=== PATIENT | female | born 1940 | race Caucasian/White ===

== ENCOUNTER 2025-04-21 13:23 | Observation (INO) ==
--- NOTE | 2025-04-21 14:14 | Emergency Department Note ---
Impression & Plan Lumbar disc herniation with myelopathy, Cervical spondylosis with myelopathy, Ambulatory dysfunction ED Provider Note CHIEF COMPLAINT: Low back pain HISTORY OF PRESENTING ILLNESS: This 85-year-old female patient presents to the emergency department with her daughter and granddaughter for a second opinion of her lower back pain and trouble walking. The patient states that she has a history of bulging disks in her lower back as well as gflk-kk-buul arthritis in her knees. The patient states that she is unable to ambulate at home because of the pain. The patient states that she was just discharged from [facility] and came here for a second opinion of her spinal issues. She is on 81 mg ASA, but not on any blood thinners at home. She was on heparin for 2 days during admission. The patient has had chronic low back pain progressively getting worse for the past year. She is no longer able to sleep flat on her back because of the pain. The patient states that she has had loss of control of her bladder control for the past 3 years. However, she has had loss of control of her bowel functions intermittently since Mother's Day. The patient then had such bad pain on 04/18/25 that she could not stand up on her own. The patient went to the [facility] ER at that time. The patient states that she had an MRI at [facility] and was told that she had a bulging disc that was protruding straight and compressing a nerve per patient. She states that she saw a neurosurgeon during admission and they wanted to do surgery per patient. The patient states that she did not want to have the surgery performed at [facility] because she was concerned about her chronic health problems and did not want to have the surgery performed in [place]. The patient states that they could not do the surgery until next week in [place] either. The patient was concerned about this so the patient states that she called Dr. Montilla's office to get in with him and the patient states that her granddaughter spoke with Dr. Montilla's physician assistant art director who told her to come to the ER emergently. The patient states that she was discharged from [facility] this morning and came straight to the [facility] ER. I was able to speak with Dr. Montilla's physician assistant art director who states that she did not know anything about the patient and that she was not contacted about the patient and did not give any recommendations on the patient. Dr. Montilla is not on-call for spinal surgery today. The patient has never been seen by Dr. Montilla's office. After discussing this with the patient and her family, the granddaughter stated that she did not actually speak with Dr. Montilla's physician assistant art director, but rather with someone that she knew in Dr. Montilla's office who told her to come to the ER because of the patient's symptoms. [facility] did not send us the inpatient records until many hours later when the patient was being admitted, but the patient had copies of the imaging studies on disc that we were able to upload to our system and I was able to review the reports. MRI of the cervical spine with and without contrast on 04/18/2025: Cervical spondylosis. Multilevel disc herniations. Grade 1 anterior listhesis of C3 over C4 vertebra with grade 2 spinal stenosis and chronic compressive myelomalacia changes in adjacent cervical cord. Grade 1 anterolisthesis of C6 over C7 vertebra with grade 2 spinal stenosis. No mass effect on the cord. Moderate bilateral neuroforaminal narrowing seen. No interval changes. MRI of the lumbar spine with and without contrast on 04/18/2025: Dextroscoliosis of the lumbar spine with associated spondylosis. Multilevel level disc herniations. Grade 1 anterolisthesis of L4 over L5 with posterior diffuse disc bulge causing grade 3 central canal stenosis, compression over traversing as well as bilateral exiting nerve roots, and bilateral severe neuroforaminal narrowing at L4/L5 level. No significant interval changes. It looks like the MRI comparison was from September 2023. Chest x-ray from 04/19/2025 showed no evidence for acute cardiopulmonary disease. X-ray of the lumbosacral spine on 04/20/2025 shows mild left convex lumbar scoliosis with 5 nonrib-bearing lumbar segments. Cholecystectomy clips in the right upper quadrant. No acute fracture of the pars into reticularis. Straightening of the normal lumbar lordosis and multilevel moderate to severe to space narrowing. No acute wedge compression deformity or listhesis. No definitive listhesis and neutral flexion and extension. Examination is suboptimal due to positioning of the patient habitus and underpenetration. Severe facet arthropathy and L3/4, L4/5 anterior listhesis, and L5/S1. Diffuse retained stool. REVIEW OF SYSTEMS: See HPI for pertinent positives and pertinent negatives. ALLERGIES: Morphine MEDICATIONS: See below PAST MEDICAL HISTORY: See below PHYSICAL EXAM: VITALS: Vitals are noted on the nurse's note and reviewed by myself. GENERAL: Appears in mild discomfort, but non toxic in appearance and in no acute distress. Non-diaphoretic. SKIN: Capillary refill less than 2 seconds. HEAD: Normocephalic atraumatic. EYES: Pupils equal round and reactive to light and accommodation. The Extraocular movements intact. NECK: Supple without nuchal rigidity. No cervical spine tenderness. No paraspinous muscle tenderness. No lymphadenopathy. HEART: Regular rate and rhythm without murmurs gallops or rubs. LUNGS: Clear to auscultation bilaterally without wheezes, rales or rhonchi. ABDOMEN: Positive bowel sounds x 4. Normal tympanic percussion. Soft, nontender, without masses or organomegaly. Arnold sign negative. MUSCULOSKELETAL: There is mild tenderness over the lower lumbar spinous processes. There is mild tenderness over the paraspinous muscles of the lumbar spine right greater than left. There is no tenderness over the thoracic spine or paraspinous muscles. There are no muscle spasms present. The patient is slow to move around with maximum tenderness with flexion of the spine. The patient is able to move her bilateral lower extremities, but with increased pain in her back. Strength is 3/5 on the right and 4/5 on the left lower extremities. The patient states that she has decreased sensation to light and sharp touch of the right lower extremity compared to the left, but is still able to feel sensation. Deep tendon reflexes 1+ in the lower extremities. Full range of motion of the bilateral upper extremities with normal strength for age bilaterally. Normal sensation to light and sharp touch of the bilateral upper extremities. Peripheral pulses 2+ and equal in the bilateral upper and lower extremities. NEURO: Patient was alert and oriented to person place and time. Normal sensation to light and sharp touch of the bilateral lower extremities. No focal neurological deficits. DIFFERENTIAL DIAGNOSIS: Differential diagnosis includes strain/sprain, muscle spasm, disc herniation, fracture, subluxation, metastatic disease, cord compression, discitis, sciatica, cauda equina, conus medullaris syndrome, infection, epidural abscess, epidural hematoma, aortic disease, renal colic, UTI, pyelonephritis, gastrointestinal, as well as other pathologies. ED COURSE AND MEDICAL DECISION MAKING: HISTORY FROM INDEPENDENT HISTORIAN: Additional history was obtained from the patient's daughter and granddaughter. MEDICATIONS GIVEN: Tylenol 1000 mg IV. INTERPRETATION OF LABS: I interpreted the labs with full lab results as below in the lab section of this note. Laboratory results pertinent to the emergent complaint are discussed in the MDM section below. The patient was advised to follow up with their PCP and/or specialist(s) for further outpatient monitoring and management of any abnormal results. EXTERNAL RECORDS REVIEWED: I reviewed the patient's imaging studies that we were able to upload to our system as summarized above. I did finally get some records from [facility] at the time of the patient's admission. CHRONIC MEDICAL/SOCIAL CONDITIONS AFFECTING CARE: The patient has multiple comorbid and chronic health problems including a history of throat cancer requiring radiation and surgical intervention, carotid artery stenosis, and chronic kidney disease. CONSULTATIONS: Physician assistant art director for Dr. Montilla of spinal surgery. Dr. Tran of spinal surgery. Dr. Zamarripa of spinal surgery at [facility]. Dr. Rolon of the medicine service at [facility]. On-call anesthesiologist. Dr. Hollingsworth. On-call hospitalist. MDM SUMMARY: I examined the patient. The patient states that she was admitted to [facility] and was set to undergo spinal surgery next week due to her abnormal MRI findings of her lumbar spine as well as her cervical spine. There was concern for cauda equina syndrome per patient. However, the patient states that she has had chronic low back pain that has gotten progressively worse over the past couple of months. She started noticing saddle anesthesia and intermittent fecal incontinence about 1 month ago. She has had urinary incontinence for the past 1 to 2 years or more. The patient had trouble walking and standing up on 04/18/2025 which prompted her to be seen at the [facility] ER. I was able to review the patient's imaging from the disc that was uploaded to our system with the findings as above. However, we did not receive the records from [facility] until almost 7 hours after the patient had presented to the ER and at the time of her admission locally. These records were also only partial records without complete information. The patient stated that she did not want to have surgery performed by the surgeon at [facility] and requested to be discharged from that hospital. Initially, the patient's daughter and granddaughter stated that they spoke with Dr. Montilla's physician assistant art director who told the patient that Dr. Montilla could perform the surgery and the patient should come to the ER emergently for a second opinion per the patient's family. Dr. Montilla was not on-call, but since the patient's family stated they talk to Dr. Montilla's physician assistant art director directly, I contacted Dr. Montilla's office since it was still during office hours. I spoke with Dr. Montilla's physician assistant art director who did not know anything about the patient and stated that she did not send the patient to the ER. She stated that Dr. Montilla was not on-call and that Dr. Tran was on-call and would need to be consulted. After discussing this with the family, the patient's granddaughter stated that she did not actually speak with Dr. Montilla's physician assistant art director, but rather someone else in the office that she knew who told her to come to the ER just based on the patient's symptoms. I then reached out to Dr. Tran of spinal surgery. He stated that he could perform surgical intervention on the patient, but due to the length of the symptoms it was unclear how much improvement of her current deficits would be able to be achieved. He also stated that due to the patient's complicated medical history and previous throat cancer/radiation/surgery and her carotid artery stenosis he was not sure that anesthesia would feel comfortable having the patient undergo surgery at our facility. I reached out to the on-call anesthesiologist, but as I was talking to the on-call anesthesiologist, Dr. Tran messaged me that he had reach out to Dr. Hollingsworth who felt the patient was high risk and would need to be transferred to a tertiary care facility for surgical intervention. I reached out to [facility] and spoke with Dr. Zamarripa of spinal surgery. He stated that he would accept the patient for surgical intervention, but it would not be emergent surgical intervention and he was unsure exactly when he would be able to perform the surgery. He stated that the procedure could even be done as an outpatient if needed. However, the patient and her family do not feel that she can be discharged at this time because she is unable to care for herself, stand up or ambulate without severe difficulty, or perform her daily ADLs. Therefore, she would need to be admitted medically or transferred to a rehab facility until she could undergo surgery. I spoke with Dr. Rolon of the medicine service at [facility] who did not accept the patient in transfer because the patient did not need to have the emergent surgery and medical admission/rehab placement could be performed locally. I had a meaningful discussion about this patient with Raciel who agrees with my assessment and the treatment plan. Dr. Schrader, Dr. Tran, Dr. Hollingsworth, and I had a discussion about the appropriate disposition of this patient given her unique and difficult situation. Dr. Tran did reach out to Dr. Zamarripa himself, but the patient was still not a candidate for transfer. It was recommended the patient be admitted locally by medicine for stabilization and/or rehab placement until she could undergo definitive surgical intervention. Dr. Tran stated that he would be on consult for the patient, but if she would require any surgical intervention it would need to be performed at a tertiary care facility. I spoke with the on-call hospitalist who agreed to admit the patient for further medical management. Please refer to their dictations for further details. An IV lock was placed and labs were drawn for admission. The patient was given Tylenol and 1000 mg IV for pain. The patient's care was transferred to the on-call hospitalist in stable condition. DIAGNOSIS: Grade 1 anterolisthesis of L4 over L5 with posterior diffuse disc bulge causing grade 3 central canal stenosis and myelopathy of the lower extremities Cervical spondylosis with grade 1 anterolisthesis of C3 over C4 with grade 2 spinal stenosis and chronic compressive myomalacia changes in the adjacent cervical cord Ambulatory dysfunction Past Med/Surg History Problem List (Updated 04/21/25 @ 23:01 by Maddison Nguyen PA-C) Ambulatory dysfunction (Acute) Cervical spondylosis with myelopathy (Acute) Lumbar disc herniation with myelopathy (Acute) Mass of left side of neck Oropharyngeal mass Encounter for pre-operative examination Medical History (Updated 04/21/25 @ 23:01 by Maddison Nguyen PA-C) Nonobstructive atherosclerosis of coronary artery Per 2013 cath Osteoarthritis Fistula left arm - 4 fistula and do not work right arm - attempted and does not work follows with Dr. 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 - was found at ophthalmology visit will start to see Dr Walker in April 2019 Surgical History Hx of excision of mass lipoma (fatty tumor ) removed from back Hx of tubal ligation History of arthroscopy right knee arthroscopy x 3 History of carpal tunnel release right and left History of cholecystectomy History of esophagogastroduodenoscopy (EGD) History of colonoscopy S/P CATHY-BSO History of cataract surgery right and left History of cardiac cath 2013 heart cath--nonobstructive dz Social History Smoking Status: Former smoker Second Hand Exposure: No; Do You Dip or Chew Tobacco: No; Hx Alcohol Use: No Hx Substance Use: No Preferred Language: Romanian Communication Ability: Effective Animal Laboratory Technician Required: No Beliefs That Will Affect Care: None Current Living Situation: Alone Feels Safe at Home: Yes Assistive Devices: Cane, Denture - Upper and Walker Allergies Allergies Allergy/AdvReac Type Severity Reaction Status Date / Time morphine AdvReac Mild "jittery" Verified 02/26/19 12:24 Home Meds Home Medications Medication Instructions Recorded Confirmed amlodipine 5 mg tablet 10 mg PO QAM 02/24/19 04/21/25 flaxseed oil 1,000 mg capsule 1,000 mg PO QAM 02/24/19 04/21/25 gabapentin 100 mg capsule 200 mg PO HS 02/24/19 04/21/25 (Neurontin) multivitamin 1 cap PO QAM 02/24/19 04/21/25 omega 1-jba-yzb-fish oil 1,000 mg 1 cap PO QAM 02/24/19 04/21/25 (120 mg-180 mg) capsule (Fish Oil) ranibizumab 0.5 mg/0.05 mL 1 dose intravitreal UD 02/24/19 04/21/25 intravitreal solution for injection (Lucentis) cholecalciferol (vitamin D3) 1,250 50,000 unit PO WK 04/21/25 04/21/25 mcg (50,000 unit) capsule cholecalciferol (vitamin D3) 125 5,000 unit PO DAILY 04/21/25 04/21/25 mcg (5,000 unit) capsule cyanocobalamin (vitamin B-12) 1,000 mcg IM MONTHLY 04/21/25 04/21/25 1,000 mcg/mL injection solution evolocumab 140 mg/mL subcutaneous 140 mg subcut .[id number] 04/21/25 04/21/25 pen injector (Repatha SureClick) levothyroxine 100 mcg tablet 100 mcg PO DAILY 04/21/25 04/21/25 (Synthroid) pantoprazole 40 mg tablet,delayed 40 mg PO DAILY 04/21/25 04/21/25 release sodium bicarbonate 650 mg tablet 650 mg PO TID 04/21/25 04/21/25 Results & Data (ED) Vital Signs Vital Signs - 24 hr 04/21/25 13:28 04/21/25 19:00 04/21/25 21:00 Temperature 36.7 C Temperature Source Temporal Artery Scan Pulse Rate 74 Pulse Rate [Finger] 67 79 Respiratory Rate 18 16 18 Respiratory Effort / Characteristics Non-Labored Spontaneous Respiratory Depth Normal Blood Pressure 126/67 Blood Pressure [Right Arm] 131/75 138/79 Blood Pressure Mean 86 Blood Pressure Mean [Right Arm] 93 98 Pulse Oximetry 98 96 97 Oxygen Delivery Method Room Air Room Air Room Air Sepsis Recent Fever Within 48 Hours No Sepsis New/Unexplained Change in Mental Status No Sepsis Action Taken by Nursing No Action Required 04/21/25 22:27 Temperature Temperature Source Pulse Rate Pulse Rate [Finger] 64 Respiratory Rate 18 Respiratory Effort / Characteristics Respiratory Depth Blood Pressure Blood Pressure [Right Arm] 132/69 Blood Pressure Mean Blood Pressure Mean [Right Arm] 90 Pulse Oximetry 98 Oxygen Delivery Method Sepsis Recent Fever Within 48 Hours Sepsis New/Unexplained Change in Mental Status Sepsis Action Taken by Nursing Laboratory Data 04/21/25 16:56 06/19/25 16:56 Lab Results 04/21/25 04/21/25 Range/Units 15:45 16:56 WBC 7.87 (4.8-10.8) K/ul RBC 3.31 L (4.20-5.40) M/uL Hgb 9.9 L (12.0-16.0) g/dl Hct 31.0 L (37.0-47.0) % MCV 93.7 (80.0-100.0) fL MCH 29.9 (25.0-34.0) pg MCHC 31.9 L (32.0-36.0) g/dL RDW Std Deviation 44.9 (36.4-46.3) fL RDW Coeff of Umesh 13.0 (11.5-14.5) % Plt Count 223 (130-400) K/uL MPV 9.4 (9.4-12.4) fL Immature Gran % (Auto) 0.3 % Neut % (Auto) 66.9 % Lymph % (Auto) 20.1 % Cooper % (Auto) 11.7 % Eos % (Auto) 0.9 % Baso % (Auto) 0.1 % Neut # (Auto) 5.27 (1.40-6.50) K/uL Lymph # (Auto) 1.58 (1.20-3.40) K/uL Cooper # (Auto) 0.92 H (0.11-0.59) K/uL Eos # (Auto) 0.07 (0.00-0.50) K/uL Baso # (Auto) 0.01 (0.00-0.20) K/uL Immature Gran # (Auto) 0.02 (0.01-0.20) K/uL Sodium 135 L (136-145) mmol/L Potassium 4.5 (3.5-5.1) mmol/L Chloride 102 (98-107) mmol/L Carbon Dioxide 23 (21-32) mmol/L Anion Gap 10 (3-11) BUN 55 H (6-23) mg/dl Creatinine 3.90 H (0.6-1.2) mg/dl Est Cr Clr Drug Dosing Not Reportable eGFR 10.92 BUN/Creatinine Ratio 14.1 (10-20) Glucose 126 H (70-99(Fasting)) mg/dl Estimat Average Glucose 123 mg/dl Hemoglobin A1c 5.9 H (4.5-5.6) % Calcium 8.9 (8.6-10.3) mg/dl Total Bilirubin 0.4 (0.2-1.0) mg/dl AST 27 (13-39) U/L ALT 27 (7-52) U/L Alkaline Phosphatase 135 H (34-104) U/L Total Protein 6.5 (6.0-8.3) gm/dl Albumin 3.8 (3.4-5.0) gm/dl Globulin 2.7 (2.5-4.0) gm/dl Albumin/Globulin Ratio 1.4 (0.9-2) TSH 1.086 (0.300-4.500) uIu/ml Urine Color Yellow Urine Appearance Clear (Clear) Urine pH 7.0 (4.5-7.5) Ur Specific [place] 1.005 (1.000-1.030) Urine Protein Trace H (Negative) Urine Glucose (UA) Trace H (Negative) Urine Ketones Negative (Negative) Urine Blood Negative (Negative) Urine Nitrite Negative (Negative) Urine Bilirubin Negative (Negative) Urine Urobilinogen Negative (Negative) Ur Leukocyte Esterase Negative (Negative) Urine WBC (Auto) 0-5 (0-5) /hpf Urine RBC (Auto) 0-2 (0-2) /hpf U Hyaline Cast (Auto) 0-2 (0-2) /lpf U Epithel Cells (Auto) 0-2 (0-2) /hpf Urine Bacteria (Auto) None Seen (None Seen) Urine Comment Administered Medications Lidocaine (Lidocaine 5% 1 Patch) 1 patch TD HS PRICE Stop: 05/21/25 21:29 Last Admin: 04/21/25 21:52 Dose: 1 patch Documented By: NAW Discontinued Medications Acetaminophen (Ofirmev) 1,000 mg in 100 mls @ 400 mls/hr IV NOW STA Stop: 04/21/25 16:19 Last Infusion: 04/21/25 18:00 Dose: Infused Documented By: Admin: 04/21/25 17:13 Dose: 400 mls/hr Documented By: RUTHANN Oxycodone HCl (Oxycodone Hcl Ir 5 Mg Tab (Immediate Release)) 5 mg PO NOW STA Stop: 04/21/25 21:27 Last Admin: 04/21/25 21:51 Dose: 5 mg Documented By: JACK Discharge Plan Visit Data Chief Complaint: Back Injury/Pain Stated Complaint: WANT A 2ND OPINION ED Provider: Mis Schrader ED Midlevel Provider: Maddison Nguyen Discharge Problem: Lumbar disc herniation with myelopathy, Cervical spondylosis with myelopathy, Ambulatory dysfunction Patient Disposition: Admitted As Inpatient Condition: Fair Forms Stand Alone Forms: My [facility] Prescriptions Prescriptions: No Action amlodipine 5 mg Tablet 10 mg PO QAM flaxseed oil 1,000 mg Capsule 1,000 mg PO QAM Rx Instructions: 04/21-OTC unable to verify gabapentin [Neurontin] 100 mg Capsule 200 mg PO HS multivitamin Capsule 1 cap PO QAM Rx Instructions: 04/21-OTC unable to verify Lucentis 0.5 mg/0.05 mL Solution 1 dose INTRAVITREAL UD Rx Instructions: original: 1 dose intravitreal every 6 weeks 04/21-No fill history unable to verify omega 0-ich-ovn-fish oil [Fish Oil] 1,000 mg (120 mg-180 mg) Capsule 1 cap PO QAM Rx Instructions: 04/21-OTC unable to verify levothyroxine [Synthroid] 100 mcg tablet 100 mcg PO DAILY sodium bicarbonate 650 mg tablet 650 mg PO TID pantoprazole 40 mg tablet,delayed release (DR/EC) 40 mg PO DAILY cyanocobalamin (vitamin B-12) 1,000 mcg/mL solution 1,000 mcg IM MONTHLY cholecalciferol (vitamin D3) 125 mcg (5,000 unit) capsule 5,000 unit PO DAILY cholecalciferol (vitamin D3) 1,250 mcg (50,000 unit) capsule 50,000 unit PO WK Repatha SureClick 140 mg/mL pen injector 140 mg subcut .[id number] Referrals Referrals: Sebastián Granados, [Outside Practitioners] -
--- NOTE | 2025-04-21 14:14 | Emergency Department Note ---
ED Visit Note I was consulted by the Advanced Practice Provider, Maddison Nguyen PA-C. I performed a substantive portion of the visit. This includes aspects of: History: Patient is an 85-year-old female presenting with low back pain and neurological deficits. Patient reportedly presented to [facility] and was diagnosed with bulging disks and concern for cauda equina. They had a surgical plan in place but the family left AGAINST MEDICAL ADVICE and presented to [facility] for "a second opinion." Patient reportedly has been having loss of bowel and bladder control "for a while." She is unable to ambulate secondary to pain, numbness and tingling. No reported fevers. MDM: Spine surgery was consulted with plan for surgical intervention here at [facility]. However, on anesthesia consultation for the OR, they deemed her a high risk surgical candidate and did not feel she was an appropriate surgical candidate from [facility] and recommended transfer to a tertiary care facility. [facility] was consulted for transfer. .
[2025-04-21 16:40] LABS: Appearance Urine Clear (Clear); Bacteria Urine Automated None Seen (None Seen); Bilirubin Urine Negative (Negative); Blood Urine Negative (Negative); Cast Urine Automated 0-2 /lpf (0-2); Color Urine Yellow; Epithelial Cell Urine Auto 0-2 /hpf (0-2); Glucose Urine UA Trace (Negative); Ketones Urine Negative (Negative); Leukocyte Esterase Urine Negative (Negative); Nitrite Urine Negative (Negative); Protein Urine Trace (Negative); RBC Urine Automated 0-2 /hpf (0-2); Specific Gravity Urine 1.005 (1.000-1.030); Urobilinogen Urine Negative (Negative); WBC Urine Automated 0-5 /hpf (0-5)
[2025-04-21 17:08] LABS: Basophils # (auto) 0.01 K/uL (0.00-0.20); Basophils % (auto) 0.1 %; Eosinophils # (auto) 0.07 K/uL (0.00-0.50); Eosinophils % (auto) 0.9 %; Hemoglobin 9.9 g/dl (12.0-16.0); Immature Granulocytes # (auto) 0.02 K/uL (0.01-0.20); Immature Granulocytes % (auto) 0.3 %; Lymphocytes # (auto) 1.58 K/uL (1.20-3.40); Lymphocytes % (auto) 20.1 %; Mean Corpuscular Hemoglobin 29.9 pg (25.0-34.0); Mean Corpuscular Hgb Conc 31.9 g/dL (32.0-36.0); Mean Corpuscular Volume 93.7 fL (80.0-100.0); Mean Platelet Volume 9.4 fL (9.4-12.4); Monocytes # (auto) 0.92 K/uL (0.11-0.59); Monocytes % (auto) 11.7 %; Neutrophils # (auto) 5.27 K/uL (1.40-6.50); Neutrophils % (auto) 66.9 %; Platelet Count 223 K/uL (130-400); RDW Standard Deviation 44.9 fL (36.4-46.3); Red Blood Count 3.31 M/uL (4.20-5.40); White Blood Count 7.87 K/ul (4.8-10.8)
[2025-04-21] MEDS: ACETAMINOPHEN 1,000 MG/100 ML VIAL IV STA (17:13)
[2025-04-21 17:28] LABS: Alanine Aminotransferase 27 U/L (7-52); Albumin Globulin Ratio 1.4 (0.9-2); Albumin Level 3.8 gm/dl (3.4-5.0); Alkaline Phosphatase 135 U/L (34-104); Anion Gap 10 (3-11); Aspartate Aminotransferase 27 U/L (13-39); BUN Creatinine Ratio 14.1 (10-20); Bilirubin,Total 0.4 mg/dl (0.2-1.0); Blood Urea Nitrogen 55 mg/dl (6-23); Calcium 8.9 mg/dl (8.6-10.3); Carbon Dioxide 23 mmol/L (21-32); Chloride 102 mmol/L (98-107); Globulin 2.7 gm/dl (2.5-4.0); Glucose 126 mg/dl (70-99(Fasting)); Potassium 4.5 mmol/L (3.5-5.1); Sodium 135 mmol/L (136-145); Total Protein 6.5 gm/dl (6.0-8.3)
[2025-04-21] MEDS ORDERED: ACETAMINOPHEN 325 MG TAB PO PRN (19:55)
--- NOTE | 2025-04-21 21:21 | History & Physical Report ---
Date of Service April 21, 2025 Assessment & Plan (1) Back pain: Plan: Assessment and plan below following discussion of case with ED provider and reviewing patient history/pertinent normal/abnormal diagnostic test results. Worsening back pain of few weeks duration cauda equina CHF as per records, patient euvolemic hx nonocclusive CAD Bilateral carotid artery disease hx CVA as per records hypertension, stable uterine cancer status post surgery left tonsillar cancer status post surgery/radiation, in remission, aspiration concerns following 2019 surgery CRI, creatinine at baseline Acute on chronic anemia, hemoglobin drop from baseline, no overt source of bleed, FOBT done at the ER was negative Systolic murmur on exam, chronic as per patient hypothyroidism, euthyroid as of today's TSH Hyperglycemia rule out DM Constipation possibly opioid induced past tobacco abuse OBS Admit to med/surg Orthopedic spine consult Re: Cauda equina, second opinion ED provider already in touch with Dr. Castro. Transfer to tertiary center recommended due to high risk of cardiac complications with recommended surgical intervention after discussion with [facility] anesthesiologist (Dr. Hollingsworth). (Pt has revised cardiac index score of 4 points - Class IV Risk, 15% 30-day risk of , PA, or cardiac arrest.) Urgent transfer not indicated owing to patient circumstances after Dr. Castro's discussion with [facility] neurosurgeon (Dr. Zamarripa) as per ED provider. [facility] hospitalist service declined transfer request due to absence of definite surgical plan/schedule from [facility] specialist and current [facility] bed availability. Dr. Castro recommended n.p.o. status after midnight until he is able to evaluate patient as per ED provider. TTE re: systolic murmur Cardiology consult re: preop eval Follow H&H, transfuse PRBC to maintain hemoglobin of at least 8 Resume aspirin for secondary CAD/stroke prevention if orthopedic product distribution specialist agreeable Check hemoglobin A1c Bowel regimen DVT prophylaxis. SCDs RE possible procedure Full code Patient daughter requesting updates providers. Ms. Nuha Mcclelland, contact #[phone]. Text document was generated using [employer] voice recognition software. It may contain grammatical or spelling errors. Kindly contact undersigned for clarification of any documentation item in question. History of Present Illness Chief Complaint: Second opinion Primary Care Provider: PCP : Adalberto Bañuelos from [place] [employer] : Dr. Oshea from [place] [facility] : Dr. Hill from [place], [place] Vascular surgeon : Dr. Sood from [place], [place] History obtained from patient, family, and records. Medical history significant for CHF as per records, nonocclusive CAD, carotid artery disease, CVA as per records, hypertension, hyperlipidemia, uterine cancer status post surgery, left tonsillar cancer status post surgery/radiation, CRI (baseline creatinine 3.9-4), chronic anemia (baseline hemoglobin 11), hypothyroidism, GERD, cauda equina syndrome as per records, past tobacco abuse. Patient noted worsening of chronic low back pain last month after outpatient steroid injection. Usual neck pain as per patient. No radiation to legs. Both legs (right more than the left) weaker than usual as per patient. Chronic urinary incontinence. Bowel incontinence noted few months ago. No fever, no chills. Patient denies chest pain, SOB, cough symptoms. Denies abdominal pain, black/bloody stools, hematuria. No BM for 3 days which is unusual for her. Patient directed by outpatient provider to ER for evaluation. Patient admitted at [facility] from April 18 to 2024 for possible cauda equina syndrome. MRI cervical spine showed cervical spondylosis with multiple level disc herniations. MRI lumbar spine showed 1. Dextroscoliosis lumbar spine with associated spondylosis. 2. Multiple level disc herniations 3, grade 1 anterolisthesis of L4 over L5 with posterior diffuse disc bulge causing grade 3 central canal stenosis, compression over traversing as well as bilateral exiting nerve roots and bilateral severe neuroforaminal narrowing at L4/L5 level. Chest x-ray official read no evidence of acute cardiopulmonary disease. Carotid artery Dopplers showed 70 to 99% stenosis proximal left ICA. 50 to 69% stenosis proximal right ICA. Patient evaluated by neurosurgery during confinement. Impression was grade 1 anterolisthesis L4 over L5 with posterior disc bulge causing grade 3 central canal stenosis, chronic myomalacia cervical spine C3-C4. Medical clearance recommended prior to surgery. Patient requested to be discharged from facility today to seek second surgical opinion at [facility]. Medical History as above Surgical History : Hysterectomy, left tonsillectomy, adenoidectomy, myringotomy, cataract surgeries, cholecystectomy, bilateral carpal tunnel surgery, AV fistula creation, knee surgery right, BTL, partial tongue surgery, subcutaneous fibroid tumor removal Family History : Heart disease, ovarian cancer, carcinoid neoplasm, DM, stroke, aneurysm, heart disease Personal/Social history : Past tobacco abuse, occasional EtOH intake, retired businesswoman Allergies Allergy/AdvReac Type Severity Reaction Status Date / Time morphine AdvReac Mild "jittery" Verified 02/26/19 12:24 Home Medications Medication Instructions Recorded Confirmed Type amlodipine 5 mg tablet 10 mg PO QAM 02/24/19 04/21/25 History flaxseed oil 1,000 mg capsule 1,000 mg PO QAM 02/24/19 04/21/25 History gabapentin 100 mg capsule 200 mg PO HS 02/24/19 04/21/25 History (Neurontin) multivitamin 1 cap PO QAM 02/24/19 04/21/25 History omega 2-fof-hdg-fish oil 1,000 mg 1 cap PO QAM 02/24/19 04/21/25 History (120 mg-180 mg) capsule (Fish Oil) ranibizumab 0.5 mg/0.05 mL 1 dose intravitreal UD 02/24/19 04/21/25 History intravitreal solution for injection (Lucentis) cholecalciferol (vitamin D3) 1,250 50,000 unit PO WK 04/21/25 04/21/25 History mcg (50,000 unit) capsule cholecalciferol (vitamin D3) 125 5,000 unit PO DAILY 04/21/25 04/21/25 History mcg (5,000 unit) capsule cyanocobalamin (vitamin B-12) 1,000 mcg IM MONTHLY 04/21/25 04/21/25 History 1,000 mcg/mL injection solution evolocumab 140 mg/mL subcutaneous 140 mg subcut .[id number] 04/21/25 04/21/25 History pen injector (Repatha SureClick) levothyroxine 100 mcg tablet 100 mcg PO DAILY 04/21/25 04/21/25 History (Synthroid) pantoprazole 40 mg tablet,delayed 40 mg PO DAILY 04/21/25 04/21/25 History release sodium bicarbonate 650 mg tablet 650 mg PO TID 04/21/25 04/21/25 History Aspir-81 81 mg PO DAILY 04/22/25 04/22/25 History Past Med/Surg History Problem List (Updated 04/22/25 @ 00:35 by Tyler Schmitt MD) Back pain Ambulatory dysfunction (Acute) Cervical spondylosis with myelopathy (Acute) Lumbar disc herniation with myelopathy (Acute) Mass of left side of neck Oropharyngeal mass Encounter for pre-operative examination Medical History (Updated 04/22/25 @ 00:35 by Tyler Schmitt MD) Nonobstructive atherosclerosis of coronary artery Per 2014 cath Osteoarthritis Fistula left arm - 4 fistula and do not work right arm - attempted and does not work follows with Dr. 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 - was found at ophthalmology visit will start to see Dr Walker in April 2019 Surgical History Hx of excision of mass lipoma (fatty tumor ) removed from back Hx of tubal ligation History of arthroscopy right knee arthroscopy x 3 History of carpal tunnel release right and left History of cholecystectomy History of esophagogastroduodenoscopy (EGD) History of colonoscopy S/P CATHY-BSO History of cataract surgery right and left History of cardiac cath 2013 heart cath--nonobstructive dz Social History Smoking Status: Former smoker Second Hand Exposure: No; Do You Dip or Chew Tobacco: No; Hx Alcohol Use: No Hx Substance Use: No Preferred Language: Maori Communication Ability: Effective Glassware Defect Repairer Required: No Beliefs That Will Affect Care: None Current Living Situation: Alone Feels Safe at Home: Yes Assistive Devices: Cane, Denture - Upper and Walker Review of Systems Review of Systems: As per HPI, all other systems reviewed and negative Physical Exam Physical Exam: GENERAL: Comfortable, pleasant, no respiratory distress SKIN: Pallor,, warm HEENT: Pale palpebral conjunctivae, no ptosis, dry buccal mucosa NECK : Supple, no tenderness CHEST : CTA, no tenderness HEART : RRR, systolic murmur ABDOMEN: Some distention, nontender BACK : Low back tenderness, limited SLR RECTAL : Intact sphincter, brown stool (FOBT negative) EXTREMITIES : No LE swelling/tenderness, palpable pulses, minimal right shoulder tenderness, no other conspicuous deformities noted NEUROLOGIC : Coherent, no facial asymmetry, MMTs BUE 4/5 (L>R), BLE 3/5 (L>R), gait and stance not assessed Results & Data Results & Data Vital Signs (Past 12 Hours) Vital Signs Temp Pulse Pulse Resp BP BP Pulse Ox 04/21/25 19:00 67 16 131/75 96 04/21/25 13:28 36.7 C 74 18 126/67 98 O2 Del Method 04/21/25 19:00 Room Air 04/21/25 13:28 Room Air Laboratory Results Laboratory Results WBC 7.87 K/ul (4.8-10.8) 04/21/25 16:56 RBC 3.31 M/uL (4.20-5.40) L 04/21/25 16:56 Hgb 9.9 g/dl (12.0-16.0) L 04/21/25 16:56 Hct 31.0 % (37.0-47.0) L 04/21/25 16:56 MCV 93.7 fL (80.0-100.0) 04/21/25 16:56 MCH 29.9 pg (25.0-34.0) 04/21/25 16:56 MCHC 31.9 g/dL (32.0-36.0) L 04/21/25 16:56 RDW Std Deviation 44.9 fL (36.4-46.3) 04/21/25 16:56 RDW Coeff of Umesh 13.0 % (11.5-14.5) 04/21/25 16:56 Plt Count 223 K/uL (130-400) 04/21/25 16:56 MPV 9.4 fL (9.4-12.4) 04/21/25 16:56 Immature Gran % (Auto) 0.3 % 04/21/25 16:56 Neut % (Auto) 66.9 % 04/21/25 16:56 Lymph % (Auto) 20.1 % 04/21/25 16:56 Mcduffie % (Auto) 11.7 % 04/21/25 16:56 Eos % (Auto) 0.9 % 04/21/25 16:56 Baso % (Auto) 0.1 % 04/21/25 16:56 Neut # (Auto) 5.27 K/uL (1.40-6.50) 04/21/25 16:56 Lymph # (Auto) 1.58 K/uL (1.20-3.40) 04/21/25 16:56 Mcduffie # (Auto) 0.92 K/uL (0.11-0.59) H 04/21/25 16:56 Eos # (Auto) 0.07 K/uL (0.00-0.50) 04/21/25 16:56 Baso # (Auto) 0.01 K/uL (0.00-0.20) 04/21/25 16:56 Immature Gran # (Auto) 0.02 K/uL (0.01-0.20) 04/21/25 16:56 Sodium 135 mmol/L (136-145) L 04/21/25 16:56 Potassium 4.5 mmol/L (3.5-5.1) 04/21/25 16:56 Chloride 102 mmol/L (98-107) 04/21/25 16:56 Carbon Dioxide 23 mmol/L (21-32) 04/21/25 16:56 Anion Gap 10 (3-11) 04/21/25 16:56 BUN 55 mg/dl (6-23) H 04/21/25 16:56 Creatinine 3.90 mg/dl (0.6-1.2) H 04/21/25 16:56 Est Cr Clr Drug Dosing Not Reportable 04/21/25 16:56 eGFR 10.92 04/21/25 16:56 BUN/Creatinine Ratio 14.1 (10-20) 04/21/25 16:56 Glucose 126 mg/dl (70-99(Fasting)) H 04/21/25 16:56 Calcium 8.9 mg/dl (8.6-10.3) 04/21/25 16:56 Total Bilirubin 0.4 mg/dl (0.2-1.0) 04/21/25 16:56 AST 27 U/L (13-39) 04/21/25 16:56 ALT 27 U/L (7-52) 04/21/25 16:56 Alkaline Phosphatase 135 U/L (34-104) H 04/21/25 16:56 Total Protein 6.5 gm/dl (6.0-8.3) 04/21/25 16:56 Albumin 3.8 gm/dl (3.4-5.0) 04/21/25 16:56 Globulin 2.7 gm/dl (2.5-4.0) 04/21/25 16:56 Albumin/Globulin Ratio 1.4 (0.9-2) 04/21/25 16:56 Urine Color Yellow 04/21/25 15:45 Urine Appearance Clear (Clear) 04/21/25 15:45 Urine pH 7.0 (4.5-7.5) 04/21/25 15:45 Ur Specific [place] 1.005 (1.000-1.030) 04/21/25 15:45 Urine Protein Trace (Negative) H 04/21/25 15:45 Urine Glucose (UA) Trace (Negative) H 04/21/25 15:45 Urine Ketones Negative (Negative) 04/21/25 15:45 Urine Blood Negative (Negative) 04/21/25 15:45 Urine Nitrite Negative (Negative) 04/21/25 15:45 Urine Bilirubin Negative (Negative) 04/21/25 15:45 Urine Urobilinogen Negative (Negative) 04/21/25 15:45 Ur Leukocyte Esterase Negative (Negative) 04/21/25 15:45 Urine WBC (Auto) 0-5 /hpf (0-5) 04/21/25 15:45 Urine RBC (Auto) 0-2 /hpf (0-2) 04/21/25 15:45 U Hyaline Cast (Auto) 0-2 /lpf (0-2) 04/21/25 15:45 U Epithel Cells (Auto) 0-2 /hpf (0-2) 04/21/25 15:45 Urine Bacteria (Auto) None Seen (None Seen) 04/21/25 15:45 Urine Comment 04/21/25 15:45 Diagnostic Findings EKG as per my interpretation ([facility], 04/20): Rate 65, NSR, normal axis, no ischemia
[2025-04-21] MEDS ORDERED: POLYETHYLENE (MIRALAX) 17 GM PACK PO PRN (21:26)
[2025-04-21] MEDS: oxyCODONE HCL IR 5 MG TAB (IMMEDIATE RELEASE) PO STA (21:51)
[2025-04-21] MEDS: LIDOCAINE 5% 1 PATCH TD SCH (21:52)
[2025-04-21 21:56] LABS: Estimated Average Glucose 123 mg/dl; Hemoglobin A1C 5.9 % (4.5-5.6)
[2025-04-21 22:06] LABS: Thyroid Stimulating Hormone 1.086 uIu/ml (0.300-4.500)
[2025-04-21 23:08] LABS: Hematocrit (blood only) 28.7 % (37.0-47.0); Hemoglobin 9.2 g/dl (12.0-16.0)
[2025-04-21] MEDS: DOCUSATE SODIUM/SENNA 50/8.6MG TAB PO SCH (23:29)
[2025-04-21] MEDS: POLYETHYLENE (MIRALAX) 17 GM PACK PO STA (23:29)
[2025-04-22] MEDS: HYDROmorphone INJ 0.5 MG/0.5 ML SYR IV PRN (01:43)
[2025-04-22 02:35] LABS: Appearance Urine Clear (Clear); Bacteria Urine Automated None Seen (None Seen); Bilirubin Urine Negative (Negative); Blood Urine Negative (Negative); Cast Urine Automated 0-2 /lpf (0-2); Color Urine Yellow; Epithelial Cell Urine Auto 0-2 /hpf (0-2); Glucose Urine UA Trace (Negative); Ketones Urine Negative (Negative); Leukocyte Esterase Urine Negative (Negative); Nitrite Urine Negative (Negative); Protein Urine Trace (Negative); RBC Urine Automated 0-2 /hpf (0-2); Specific Gravity Urine 1.007 (1.000-1.030); Urobilinogen Urine Negative (Negative); WBC Urine Automated 0-5 /hpf (0-5)
[2025-04-22 03:04] VITALS: RESP 18
[2025-04-22] MEDS: LEVOTHYROXINE SODIUM 100 MCG TABLET PO SCH (06:22)
[2025-04-22 07:48] LABS: Basophils # (auto) 0.02 K/uL (0.00-0.20); Basophils % (auto) 0.4 %; Eosinophils # (auto) 0.11 K/uL (0.00-0.50); Hematocrit (blood only) 31.6 % (37.0-47.0); Hemoglobin 9.8 g/dl (12.0-16.0); Immature Granulocytes # (auto) 0.01 K/uL (0.01-0.20); Immature Granulocytes % (auto) 0.2 %; Lymphocytes # (auto) 1.48 K/uL (1.20-3.40); Lymphocytes % (auto) 26.8 %; Mean Corpuscular Hemoglobin 29.3 pg (25.0-34.0); Mean Corpuscular Volume 94.6 fL (80.0-100.0); Mean Platelet Volume 9.9 fL (9.4-12.4); Monocytes # (auto) 0.57 K/uL (0.11-0.59); Monocytes % (auto) 10.3 %; Neutrophils # (auto) 3.33 K/uL (1.40-6.50); Neutrophils % (auto) 60.3 %; Platelet Count 219 K/uL (130-400); RDW Coefficient of Variation 12.9 % (11.5-14.5); RDW Standard Deviation 44.4 fL (36.4-46.3); Red Blood Count 3.34 M/uL (4.20-5.40); White Blood Count 5.52 K/ul (4.8-10.8)
[2025-04-22 08:07] LABS: BUN Creatinine Ratio 13.8 (10-20); Calcium 8.6 mg/dl (8.6-10.3); Creatinine Clr Calc Pharmacy 9.4 ml/min; Potassium 4.4 mmol/L (3.5-5.1)
[2025-04-22] MEDS: oxyCODONE HCL IR 5 MG TAB (IMMEDIATE RELEASE) PO PRN (09:28)
[2025-04-22] MEDS: amLODIPine BESYLATE 5 MG TAB PO SCH (09:29)
[2025-04-22] MEDS: MULTIVITAMIN TAB PO SCH (09:29)
[2025-04-22] MEDS: SODIUM BICARBONATE 650 MG TAB PO SCH (09:29)
[2025-04-22] MEDS: PANTOprazole 40 MG TAB PO SCH (09:29)
--- NOTE | 2025-04-22 09:38 | Orthopedic Consultation ---
Date of Service April 22, 2025 Assessment & Plan (1) Lumbar disc herniation with myelopathy: Patient is being consulted today for evaluation of her bilateral lower extremity weakness as well as the MRI findings of significant central stenosis in the lower lumbar spine. Patient was told that she is having cauda equina syndrome. She did leave AGAINST MEDICAL ADVICE from [facility] where she did have a surgical intervention scheduled for next week. She stated that she went to come to [facility] for a second opinion. She was looking for Dr. Montilla, however he was not on-call. Dr. Tran is in was the provider on-call when the patient came to the emergency department. He did recommend surgical intervention, however it was not emergent. She is showing signs and symptoms of chronic cauda equina syndrome as she has been having urinary and bowel incontinence for the last 3 years in regards to urinary incontinence in the last month and a half or bowel incontinence. He discussed this in detail with the patient today that this is likely not going to reverse the situation even if she does have surgical intervention. Surgical intervention in itself is high risk, therefore that is why anesthesia at [facility] was also recommending a transfer. Unfortunately, [facility] would not accept the transfer due to there being no urgent/emergent surgical intervention as the patient was not having any acute neurological deficits or any acute changes to her incontinence. was at the patient's bedside for the entire conversation today. He did discuss with her that surgery would be beneficial for her, however it can be done from an outpatient perspective due no acute changes. He did recommend and discuss different treatment options including risks, benefits alternatives. There was an agreement on outpatient follow-up with either [facility] or [facility] and physical therapy/rehabilitation until then. Please reach out to [facility] spine surgery with any other questions or concerns. She may continue to be weightbearing as tolerated and range of motion as tolerated in the bilateral lower extremities. (2) Cervical spondylosis with myelopathy: (3) Back pain: (4) Lumbar stenosis: History of Present Illness Reason for Consultation: Lower extremity weakness, low back pain Requesting Physician: . Attending Physician: Claude Barber MD ED HPI: Patient is an 85-year-old female presenting with low back pain and neurological deficits. Patient reportedly presented to [facility] and was diagnosed with bulging disks and concern for cauda equina. They had a surgical plan in place but the family left AGAINST MEDICAL ADVICE and presented to [facility] for "a second opinion." Patient reportedly has been having loss of bowel and bladder control "for a while." She is unable to ambulate secondary to pain, numbness and tingling. No reported fevers. Amelia is an 85-year-old female who is being consulted today for lower extremity weakness and low back pain. She had an MRI of her lumbar spine on 04/18/2025 at [facility]. This was from an outpatient standpoint. She states that she then was sent to the emergency department as her MRI was showing a significant stenosis. She was admitted to [facility] where she was diagnosed with bulging disks and concern for cauda equina. She states that she did have a surgical intervention planned at [facility], however her family wanted her to leave to see Dr. Montilla for a second opinion. She did report to the [facility] emergency department on 04/21/2025. She was continued to have difficulty with ambulating and she has an MRI of her lumbar spine with fairly significant stenosis, therefore spine surgery was consulted last evening. Dr. Tran did and does recommend surgical intervention at some point, however because there is no urgent/emergency to this that she is not having any acute neurological deficits, and because she has significant medical comorbidities that would be better to have operations at a tertiary care center, she was recommended to be transferred to a higher center. As noted above, [facility] did not feel that there was any emergency/urgency to this that she is not having any acute deficits, therefore they recommended follow-up as an outpatient with them. Her she was also another option, however the patient states and per history from Dr. Tran, the family did not want her to go to [facility] for personal reasons. She is currently resting in her hospital bed. She has good range of motion of her bilateral lower extremities. States that she does feel weak when she walks but does not have any issues moving her legs. Does state that she has urinary and bowel incontinence. States that she has had urinary incontinence for 3 years and that she has had bowel incontinence since the beginning of March of 2025. She denies any changes to these types of incontinence symptoms over the last 24 to 48 hours. She denies any foot drop. She denies any lack of ability to move the bilateral lower extremities. To note, the patient does have an extensive and complex medical history due to her history of thyroid cancer and radiation, status of her carotid arteries, renal deficiency, etc. Allergies Allergy/AdvReac Type Severity Reaction Status Date / Time morphine AdvReac Mild "jittery" Verified 02/26/19 12:24 Home Medications Medication Instructions Recorded Confirmed Type amlodipine 5 mg tablet 10 mg PO QAM 02/24/19 04/21/25 History flaxseed oil 1,000 mg capsule 1,000 mg PO QAM 02/24/19 04/21/25 History gabapentin 100 mg capsule 200 mg PO HS 02/24/19 04/21/25 History (Neurontin) multivitamin 1 cap PO QAM 02/24/19 04/21/25 History omega 9-dha-xxc-fish oil 1,000 mg 1 cap PO QAM 02/24/19 04/21/25 History (120 mg-180 mg) capsule (Fish Oil) ranibizumab 0.5 mg/0.05 mL 1 dose intravitreal UD 02/24/19 04/21/25 History intravitreal solution for injection (Lucentis) cholecalciferol (vitamin D3) 1,250 50,000 unit PO WK 04/21/25 04/21/25 History mcg (50,000 unit) capsule cholecalciferol (vitamin D3) 125 5,000 unit PO DAILY 04/21/25 04/21/25 History mcg (5,000 unit) capsule cyanocobalamin (vitamin B-12) 1,000 mcg IM MONTHLY 04/21/25 04/21/25 History 1,000 mcg/mL injection solution evolocumab 140 mg/mL subcutaneous 140 mg subcut .[id number] 04/21/25 04/21/25 History pen injector (Repatha SureClick) levothyroxine 100 mcg tablet 100 mcg PO DAILY 04/21/25 04/21/25 History (Synthroid) pantoprazole 40 mg tablet,delayed 40 mg PO DAILY 04/21/25 04/21/25 History release sodium bicarbonate 650 mg tablet 650 mg PO TID 04/21/25 04/21/25 History Aspir-81 81 mg PO DAILY 04/22/25 04/22/25 History Past Med/Surg History Problem List (Updated 04/22/25 @ 11:18 by Keenan Tran MD) Lumbar stenosis Back pain Ambulatory dysfunction (Acute) Cervical spondylosis with myelopathy (Acute) Lumbar disc herniation with myelopathy (Acute) Mass of left side of neck Oropharyngeal mass Encounter for pre-operative examination Medical History (Updated 04/22/25 @ 11:18 by Keenan Tran MD) Nonobstructive atherosclerosis of coronary artery Per 2013 cath Osteoarthritis Fistula left arm - 4 fistula and do not work right arm - attempted and does not work follows with Dr. 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 - was found at ophthalmology visit will start to see Dr Walker in April 2019 Surgical History Hx of excision of mass lipoma (fatty tumor ) removed from back Hx of tubal ligation History of arthroscopy right knee arthroscopy x 3 History of carpal tunnel release right and left History of cholecystectomy History of esophagogastroduodenoscopy (EGD) History of colonoscopy S/P CATHY-BSO History of cataract surgery right and left History of cardiac cath 2014 heart cath--nonobstructive dz Social History Smoking Status: Former smoker Smoking End Date: 2006; Second Hand Exposure: No; Do You Dip or Chew Tobacco: No; Hx Alcohol Use: No Hx Substance Use: No Preferred Language: Icelandic Communication Ability: Effective Stock Worker Required: No Beliefs That Will Affect Care: Anabaptism Anabaptism Beliefs: VOODOO Current Living Situation: Family Current Living Situation Comment: [facility] Feels Safe at Home: Yes Safety Concerns: Feels Safe At This Time Assistive Devices: Glasses Assistive Devices Comment: PARTIAL UPPER DENTURE Review of Systems All systems reviewed & are unremarkable except as noted in HPI & below. Physical Exam General: Alert and oriented. In no acute distress. In regards to the bilateral lower extremities, she has 5 out of 5 strength with all planes. She has good sensation in the bilateral lower extremities, however she does state it is a little bit altered. She has good range of motion of the lumbar spine as well as she is able to sit up and lie back down without any assistance. Constitutional WD/WN, vitals as above Cardiovascular Vascularity grossly intact Musculoskeletal Please see above Results & Data Results & Data Laboratory Results . Diagnostic Findings MRI of the lumbar spine that was done at [facility] on 04/18/2025: This was reviewed in detail by Dr. Tran. Multilevel degenerative changes noted with severe central stenosis at L4, L5 and L5, S1. PG Care Time/CCT Total # of Minutes Spent Total Time Spent with Patient: Total time spent is greater than 50% in coordination of care (as documented) at patient's floor/unit and/or counseling patient: Supervising Physician Co-Signing Physician Notes I personally examined the patient today with Perla Lemus PA-C. I agree with the history and physical exam as documented above. As mentioned the patient has an extensive medical history, poor renal function, and she has been told by both physicians at [facility] as well as prior physicians that she is at high risk for surgery given her many medical comorbidities. She does not have any acute changes to her spine, she has chronic back pain which did worsen approximately 1 week ago when she was at [facility]. She has had chronic urinary and bowel incontinence at this point, MRI of the lumbar spine was reviewed and does show severe stenosis at L4-5 however the MRI report states that this is not significantly changed from prior exams. I discussed with her she would benefit from decompression at this level, as well as possibly the L3-4 level. We discussed the possibility of medical optimization and surgery here, review of the H&P does show that she would be a high risk for complication postoperatively. I also spoke with Dr. Zamarripa of [facility] who states he is happy to see her as an outpatient and schedule surgery, he had I have agreed that there is no need for emergent intervention as this is longstanding radiculopathy with no new neurologic deficits. She has good strength in the lower extremities, chronic bowel and bladder incontinence is unlikely to improve even with surgery at this point. After discussion the patient states she would be comfortable proceeding with pain control and rehabilitation, outpatient follow- up with Dr. Zamarripa for possible surgery at a tertiary care center. [place] [address] IN/OBS CONSULT LVL 4,60M Patient Type New History Comprehensive Exam Detailed Medical Decision Making High Complexity Diagnoses Lumbar disc herniation with myelopathy M51.06 Cervical spondylosis with myelopathy M47.12 Chronic bilateral low back pain with bilateral sciatica M54.42; M54.41; G89.29 Back pain location: low back pain Chronicity: chronic Back pain laterality: bilateral Sciatica presence: with sciatica Sciatica laterality: bilateral sciatica Spinal stenosis of lumbar region with neurogenic claudication M48.062 Neurogenic claudication status: with neurogenic claudication (3) Back pain Back pain location: low back pain Chronicity: chronic Back pain laterality: bilateral Sciatica presence: with sciatica Sciatica laterality: bilateral sciatica Qualified Code(s): M54.42 - Lumbago with sciatica, left side; M54.41 - Lumbago with sciatica, right side; G89.29 - Other chronic pain (4) Lumbar stenosis Neurogenic claudication status: with neurogenic claudication Qualified C ode(s): M48.062 - Spinal stenosis, lumbar region with neurogenic claudication
--- NOTE | 2025-04-22 10:32 | Hospitalist Progress Note ---
Date of Service April 22, 2025 Assessment & Plan (1) Back pain: Plan: Assessment and plan Worsening back pain of few weeks duration Lumbar stenosis, myelopathy Pt presents from [facility], where was treated for cauda equina Surgery was planned there but pt wanted to come to [facility] to seek second opinion, specifically pt was hoping to see Dr. Montilla who was not satellite project site monitor Orthopedic spine consulted Re: Cauda equina, second opinion Pt was seen by Dr. Tran. Pls see his note for full assessment and recommendations. In short, surgery recommended but in tertiary care center. Transfer to tertiary center recommended due to high risk of cardiac complications with recommended surgical intervention after discussion with [facility] anesthesiologist (Dr. Hollingsworth). (Pt has revised cardiac index score of 4 points - Class IV Risk, 15% 30-day risk of , GA, or cardiac arrest.) Urgent transfer not indicated owing to patient circumstances after Dr. Tran's discussion with [facility] neurosurgeon (Dr. Zamarripa) as per ED provider. [facility] hospitalist service declined transfer request due to absence of definite surgical plan/schedule from [facility] specialist and current [facility] bed availability. Plan is for pt to go to rehab at this time, as no emergent surgery. She is to follow up with [facility] Dr. Zamarripa as outpt. CM involved in DC planning - plan for DC to [facility] tmrw Chronic conditions: CHF as per records, patient euvolemic hx nonocclusive CAD Bilateral carotid artery disease hx CVA as per records hypertension, stable Cardiology consulted for poss. pre-op eval Echo obtained - mild concentric LVH, no regional wall motion abnormalities, LV syst. function normal, LV EF 65-70%. pulm. artery syst. pressure estimated 37 mm Hg (upper limit of normal). Grade I diast. dysfunction Per cardiology - Patient's cardiac status is felt to be stable, but certainly she is at high risk for cardiac and noncardiac complication especially given her carotid disease and her degree of chronic kidney disease. I counseled her that if she was to have spine surgery, it would certainly, the risk of causing her to have progressive renal insufficiency and need for dialysis. Ongoing discussions in process with regards to the benefits and risks of the proposed procedure. I do not think there is any further cardiac testing or treatment that would reduce said risk. 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 current creatinine of 4.1 is slightly higher than her baseline of around 3.8. so at this point we would manage her as CKD 5. if she undergoes surgery there is chance that she can have further decline in her kidney function with acute hemodynamic stress of the surgery. she is aware of this and is 1 of the reason she is hesitant in doing surgery. Currently no electrolyte issues or volume overload despite no diuretics. she is currently on sodium bicarb which can be continued at the same dose. she will need perioperative Nephrology evaluation and management if she undergoes surgery Other chronic conditions uterine cancer status post surgery left tonsillar cancer status post surgery/radiation, in remission, aspiration concerns following 2019 surgery Acute on chronic anemia, hemoglobin drop from baseline, no overt source of bleed, FOBT done at the ER was negative Follow H&H, transfuse PRBC to maintain hemoglobin of at least 8 Hypothyroidism, euthyroid as of current TSH Hyperglycemia rule out DM, current A1c 5.9% Constipation possibly opioid induced, Bowel regimen Past tobacco abuse Patient's daughter - Ms. Nuha Mcclelland, contact #[phone]. Admission and Anticipated Discharge Date Admission Date: April 21, 2025 Subjective Pt seen in follow up of back pain, lumbar stenosis Pt presented from [facility], here for second opinion for spinal surgery Discussed w/ multiple specialists - per anesthesia - high risk for surgery and recommend tertiary center -> [facility] contacted by ER however not accepted as does not feel emergent. Pt is to follow up there w/ Dr. Zamarripa as outpt. Pt w/ hx of CKD - Cr ~4 Pt also seen by cardiology Currently pt is lying in bed in NAD, Denies any fever, chills, chest pain, shortness of breath. Denies any abd.pain, n/v. Reports back pain, reports urinary incontinence for a long time, bowel incontinence since March of this year Review of Systems Review of Systems: All systems reviewed & are unremarkable except as noted in Subjective Physical Exam Physical Exam: GENERAL: WD/WN elderly F in NAD HEENT: NC/AT, EOMI NECK : Supple CHEST : CTA, no tenderness HEART : RRR, systolic murmur ABDOMEN: Some distention, nontender BACK : Low back tenderness EXTREMITIES : No LE swelling, moves extremities NEUROLOGIC : Coherent, no facial asymmetry, MMTs BUE 4/5 (L>R), BLE 3/5 (L>R), gait and stance not assessed SKIN: warm, dry Results & Data Results & Data Vital Signs (Past 12 Hours) Vital Signs Temp Pulse Resp BP Pulse Ox O2 Del Method O2 Flow Rate 04/22/25 07:47 36.6 C 67 18 136/66 98 Room Air 04/22/25 02:30 Room Air 04/22/25 02:30 36.8 C 65 18 138/79 100 Room Air 04/22/25 00:35 62 16 118/62 97 Oxymask 3 Laboratory Results 04/22/25 04/22/25 04/21/25 Range/Units 06:56 02:16 22:45 WBC 5.52 (4.8-10.8) K/ul RBC 3.34 L (4.20-5.40) M/uL Hgb 9.8 L 9.2 L (12.0-16.0) g/dl Hct 31.6 L 28.7 L (37.0-47.0) % MCV 94.6 (80.0-100.0) fL MCH 29.3 (25.0-34.0) pg MCHC 31.0 L (32.0-36.0) g/dL RDW Std Deviation 44.4 (36.4-46.3) fL RDW Coeff of Umesh 12.9 (11.5-14.5) % Plt Count 219 (130-400) K/uL MPV 9.9 (9.4-12.4) fL Immature Gran % (Auto) 0.2 % Neut % (Auto) 60.3 % Lymph % (Auto) 26.8 % [place] % (Auto) 10.3 % Eos % (Auto) 2.0 % Baso % (Auto) 0.4 % Neut # (Auto) 3.33 (1.40-6.50) K/uL Lymph # (Auto) 1.48 (1.20-3.40) K/uL [place] # (Auto) 0.57 (0.11-0.59) K/uL Eos # (Auto) 0.11 (0.00-0.50) K/uL Baso # (Auto) 0.02 (0.00-0.20) K/uL Immature Gran # (Auto) 0.01 (0.01-0.20) K/uL Sodium 137 (136-145) mmol/L Potassium 4.4 (3.5-5.1) mmol/L Chloride 105 (98-107) mmol/L Carbon Dioxide 24 (21-32) mmol/L Anion Gap 8 (3-11) BUN 56 H (6-23) mg/dl Creatinine 4.07 H (0.6-1.2) mg/dl Est Cr Clr Drug Dosing 9.4 eGFR 10.37 BUN/Creatinine Ratio 13.8 (10-20) Glucose 88 (70-99(Fasting)) mg/dl Estimat Average Glucose mg/dl Hemoglobin A1c (4.5-5.6) % Calcium 8.6 (8.6-10.3) mg/dl Total Bilirubin (0.2-1.0) mg/dl AST (13-39) U/L ALT (7-52) U/L Alkaline Phosphatase (34-104) U/L Total Protein (6.0-8.3) gm/dl Albumin (3.4-5.0) gm/dl Globulin (2.5-4.0) gm/dl Albumin/Globulin Ratio (0.9-2) TSH (0.300-4.500) uIu/ml Urine Color Yellow Urine Appearance Clear (Clear) Urine pH 7.0 (4.5-7.5) Ur Specific [place] 1.007 (1.000-1.030) Urine Protein Trace H (Negative) Urine Glucose (UA) Trace H (Negative) Urine Ketones Negative (Negative) Urine Blood Negative (Negative) Urine Nitrite Negative (Negative) Urine Bilirubin Negative (Negative) Urine Urobilinogen Negative (Negative) Ur Leukocyte Esterase Negative (Negative) Urine WBC (Auto) 0-5 (0-5) /hpf Urine RBC (Auto) 0-2 (0-2) /hpf U Hyaline Cast (Auto) 0-2 (0-2) /lpf U Epithel Cells (Auto) 0-2 (0-2) /hpf Urine Bacteria (Auto) None Seen (None Seen) Urine Comment Blood Type B Positive Antibody Screen NEGATIVE 04/21/25 04/21/25 Range/Units 16:56 15:45 WBC 7.87 (4.8-10.8) K/ul RBC 3.31 L (4.20-5.40) M/uL Hgb 9.9 L (12.0-16.0) g/dl Hct 31.0 L (37.0-47.0) % MCV 93.7 (80.0-100.0) fL MCH 29.9 (25.0-34.0) pg MCHC 31.9 L (32.0-36.0) g/dL RDW Std Deviation 44.9 (36.4-46.3) fL RDW Coeff of Umesh 13.0 (11.5-14.5) % Plt Count 223 (130-400) K/uL MPV 9.4 (9.4-12.4) fL Immature Gran % (Auto) 0.3 % Neut % (Auto) 66.9 % Lymph % (Auto) 20.1 % [place] % (Auto) 11.7 % Eos % (Auto) 0.9 % Baso % (Auto) 0.1 % Neut # (Auto) 5.27 (1.40-6.50) K/uL Lymph # (Auto) 1.58 (1.20-3.40) K/uL [place] # (Auto) 0.92 H (0.11-0.59) K/uL Eos # (Auto) 0.07 (0.00-0.50) K/uL Baso # (Auto) 0.01 (0.00-0.20) K/uL Immature Gran # (Auto) 0.02 (0.01-0.20) K/uL Sodium 135 L (136-145) mmol/L Potassium 4.5 (3.5-5.1) mmol/L Chloride 102 (98-107) mmol/L Carbon Dioxide 23 (21-32) mmol/L Anion Gap 10 (3-11) BUN 55 H (6-23) mg/dl Creatinine 3.90 H (0.6-1.2) mg/dl Est Cr Clr Drug Dosing Not Reportable eGFR 10.92 BUN/Creatinine Ratio 14.1 (10-20) Glucose 126 H (70-99(Fasting)) mg/dl Estimat Average Glucose 123 mg/dl Hemoglobin A1c 5.9 H (4.5-5.6) % Calcium 8.9 (8.6-10.3) mg/dl Total Bilirubin 0.4 (0.2-1.0) mg/dl AST 27 (13-39) U/L ALT 27 (7-52) U/L Alkaline Phosphatase 135 H (34-104) U/L Total Protein 6.5 (6.0-8.3) gm/dl Albumin 3.8 (3.4-5.0) gm/dl Globulin 2.7 (2.5-4.0) gm/dl Albumin/Globulin Ratio 1.4 (0.9-2) TSH 1.086 (0.300-4.500) uIu/ml Urine Color Yellow Urine Appearance Clear (Clear) Urine pH 7.0 (4.5-7.5) Ur Specific [place] 1.005 (1.000-1.030) Urine Protein Trace H (Negative) Urine Glucose (UA) Trace H (Negative) Urine Ketones Negative (Negative) Urine Blood Negative (Negative) Urine Nitrite Negative (Negative) Urine Bilirubin Negative (Negative) Urine Urobilinogen Negative (Negative) Ur Leukocyte Esterase Negative (Negative) Urine WBC (Auto) 0-5 (0-5) /hpf Urine RBC (Auto) 0-2 (0-2) /hpf U Hyaline Cast (Auto) 0-2 (0-2) /lpf U Epithel Cells (Auto) 0-2 (0-2) /hpf Urine Bacteria (Auto) None Seen (None Seen) Urine Comment Blood Type Antibody Screen Medications Administered Current Inpatient Medications Acetaminophen (Acetaminophen 325 Mg Tab) 650 mg PO QID PRN PRN Reason: pain/fever Stop: 05/21/25 19:54 Amlodipine Besylate (Amlodipine Besylate 5 Mg Tab) 10 mg PO QAM PRICE Stop: 05/22/25 08:59 Last Admin: 04/22/25 09:29 Dose: 10 mg Gabapentin (Gabapentin 100 Mg Cap) 200 mg PO HS PRICE Stop: 05/22/25 20:59 Hydromorphone HCl (Hydromorphone Inj 0.5 Mg/0.5 Ml Syr) 0.25 mg IV Q4H PRN PRN Reason: Pain Stop: 05/05/25 19:54 Last Admin: 04/22/25 09:28 Dose: 0.25 mg Promethazine HCl (Phenergan) 6.25 mg in 50.25 mls @ 201 mls/hr IV Q6H PRN PRN Reason: Nausea And Vomiting Stop: 05/21/25 19:54 Levothyroxine Sodium (Levothyroxine Sodium 100 Mcg Tablet) 100 mcg PO DAILYBB [facility] Stop: 05/22/25 06:29 Last Admin: 04/22/25 06:22 Dose: 100 mcg Lidocaine (Lidocaine 5% 1 Patch) 1 patch TD HS [facility] Stop: 05/21/25 21:29 Last Admin: 04/21/25 21:52 Dose: 1 patch Miscellaneous (Remove Lidoderm Patch) 1 each N/A DAILY@2100 [facility] Stop: 05/22/25 20:59 Multivitamins (Multivitamin Tab) 1 tab PO QAM [facility] Stop: 05/22/25 08:59 Last Admin: 04/22/25 09:29 Dose: 1 tab Oxycodone HCl (Oxycodone Hcl Ir 5 Mg Tab (Immediate Release)) 5 mg PO Q4H PRN PRN Reason: Pain Stop: 05/05/25 19:54 Last Admin: 04/22/25 09:28 Dose: 5 mg Pantoprazole Sodium (Pantoprazole 40 Mg Tab) 40 mg PO DAILY [facility] Stop: 05/22/25 08:59 Last Admin: 04/22/25 09:29 Dose: 40 mg Polyethylene Glycol (Polyethylene (Miralax) 17 Gm Pack) 17 gm PO DAILY PRN PRN Reason: Constipation Stop: 05/21/25 21:25 Senna/Docusate Sodium (Docusate Sodium/Senna 50/8.6mg Tab) 1 tab PO QAM [facility] Stop: 05/21/25 21:29 Last Admin: 04/22/25 09:31 Dose: Not Given Sodium Bicarbonate (Sodium Bicarbonate 650 Mg Tab) 650 mg PO TID [facility] Stop: 05/22/25 08:59 Last Admin: 04/22/25 09:29 Dose: 650 mg
--- NOTE | 2025-04-22 11:24 | Cardiology Consultation ---
Date of Consultation April 22, 2025 Assessment & Plan (1) Preoperative cardiovascular examination: (2) Lumbar stenosis: Patient without any acute cardiac complaints or signs or symptoms of acute cardiac decompensation. Specifically no recent angina, is euvolemic. No subjective symptoms to suggest arrhythmia. Recommend twelve-lead EKG. Patient's cardiac status is felt to be stable, but certainly she is at high risk for cardiac and noncardiac complication especially given her carotid disease and her degree of chronic kidney disease. I counseled her that if she was to have spine surgery, it would certainly, the risk of causing her to have progressive renal insufficiency and need for dialysis. Ongoing discussions in process with regards to the benefits and risks of the proposed procedure. I do not think there is any further cardiac testing or treatment that would reduce said risk. Will plan on reviewing her twelve-lead EKG and will be available for additional advice as needed as her hospital stay progresses. Jhony Haas DO Cardiology History of Present Illness Attending Physician: Claude Barber MD History of Present Illness Amelia Mcclelland is an 85 year old female seen in cardiology consultation per the request of Dr Schmitt for preoperative cardiology assessment. Patient describes several months of progressive low back pain. She has received most of her health care in [facility]. She reports having an epidural steroid injection for low back pain on 03/15/2025 and notes worsening symptoms in the interim. An MRI of the spine was performed on 04/18/2025 at [place] revealing multilevel degenerative changes and severe central stenosis at the levels of L4, L5, and S1. Patient describes progressive symptoms of difficulty walking, although she states that she has been able to walk with the assistance of a walker up until this hospital stay. She notes 3 months of urinary incontinence and bladder incontinence for a month and a half dating back to Mar, 2025. The patient was admitted at [facility] and spine surgery was tentatively planned. The patient however left the hospital and sought a second presented to the emergency department at [facility] for a second opinion. During my assessment the patient was in no acute distress. She was able to sit up with regards to participating in her examination. She denies any recent chest discomfort, new or undue shortness of breath, palpitations, lightheadedness or dizziness. She is able to lie supine without difficulty. The patient has followed with Dr Oshea of [facility] cardiology with most recent outpatient visit in 10/2023. With the written consent of the patient , I was able to view her [facility] cardiology reports in the [facility] medical record. Past Cardiac History: 1. Coronary heart disease cardiac catheterization took place 01/2014 in [place] with findings of 40-50% stenosis in the LAD, 40% right coronary stenosis for which medical management was recommended 2. CKD stage IV approaching V, baseline creatinine 4 mg /dl EGFR 11-15 ml/m/m2, describes having had multiple attempts at AV fistula formation which were unsuccessful due to thrombus per her description 3. Asymptomatic carotid artery disease, most recent carotid duplex performed 10/21/2023, There is 50-69% stenosis in the RIGHT internal carotid artery. There is 70-99% stenosis in the LEFT internal carotid artery, follows wt Dr Sood of vascular surgery [facility] 4. HTN 5. Dyslipidemia 6. Osteoarthritis right greater than left knee pain Allergies Allergy/AdvReac Type Severity Reaction Status Date / Time morphine AdvReac Mild "jittery" Verified 02/26/19 12:24 Home Medications Medication Instructions Recorded Confirmed Type amlodipine 5 mg tablet 10 mg PO QAM 02/24/19 04/21/25 History flaxseed oil 1,000 mg capsule 1,000 mg PO QAM 02/24/19 04/21/25 History gabapentin 100 mg capsule 200 mg PO HS 02/24/19 04/21/25 History (Neurontin) multivitamin 1 cap PO QAM 02/24/19 04/21/25 History omega 4-zce-kgx-fish oil 1,000 mg 1 cap PO QAM 02/24/19 04/21/25 History (120 mg-180 mg) capsule (Fish Oil) ranibizumab 0.5 mg/0.05 mL 1 dose intravitreal UD 02/24/19 04/21/25 History intravitreal solution for injection (Lucentis) cholecalciferol (vitamin D3) 1,250 50,000 unit PO WK 04/21/25 04/21/25 History mcg (50,000 unit) capsule cholecalciferol (vitamin D3) 125 5,000 unit PO DAILY 04/21/25 04/21/25 History mcg (5,000 unit) capsule cyanocobalamin (vitamin B-12) 1,000 mcg IM MONTHLY 04/21/25 04/21/25 History 1,000 mcg/mL injection solution evolocumab 140 mg/mL subcutaneous 140 mg subcut .[id number] 04/21/25 04/21/25 History pen injector (Evelin Dawkinsick) levothyroxine 100 mcg tablet 100 mcg PO DAILY 04/21/25 04/21/25 History (Synthroid) pantoprazole 40 mg tablet,delayed 40 mg PO DAILY 04/21/25 04/21/25 History release sodium bicarbonate 650 mg tablet 650 mg PO TID 04/21/25 04/21/25 History Aspir-81 81 mg PO DAILY 04/22/25 04/22/25 History Patient History Medical History (Updated 04/22/25 @ 11:40 by Jhony Haas DO) Nonobstructive atherosclerosis of coronary artery Per 2013 cath Osteoarthritis Fistula left arm - 4 fistula and do not work right arm - attempted and does not work follows with Dr. 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 - was found at ophthalmology visit will start to see Dr Walker in April 2019 Surgical History Hx of excision of mass lipoma (fatty tumor ) removed from back Hx of tubal ligation History of arthroscopy right knee arthroscopy x 3 History of carpal tunnel release right and left History of cholecystectomy History of esophagogastroduodenoscopy (EGD) History of colonoscopy S/P CATHY-BSO History of cataract surgery right and left History of cardiac cath 2013 heart cath--nonobstructive dz Social History Smoking Status: Former smoker Smoking End Date: 2006; Second Hand Exposure: No; Do You Dip or Chew Tobacco: No; Hx Alcohol Use: No Hx Substance Use: No Preferred Language: Mosotho Communication Ability: Effective Film And Video Editor Required: No Beliefs That Will Affect Care: Oriental Orthodox Oriental Orthodox Beliefs: PRESYBETERIAN Current Living Situation: Family Current Living Situation Comment: [facility] Feels Safe at Home: Yes Safety Concerns: Feels Safe At This Time Assistive Devices: Glasses Assistive Devices Comment: PARTIAL UPPER DENTURE Review of Systems Review of Systems: All systems reviewed & are unremarkable except as noted in HPI & below Physical Exam Physical Exam: General: no acute distress and stated age Eyes: conjunctiva are pink and non-injected, sclera clear Neck: normal jugular venous pulse, no hepatojugular reflux Chest: normal shape and normal respiratory effort Lungs: clear to auscultation and percussion Cardiac Exam: - regular heart sounds, 1/6 systolic murmur, no jugular venous distention Abdomen: abdomen soft, non-tender, no abnormal masses and no hepatosplenomegaly Extremities: no edema and no cyanosis Neuro:awake, conversant, Follows commands, moves all 4 extremities on request Psych: appropriate affect and insight. Results & Data Vital Signs (Past 12 Hours) Vital Signs Temp Pulse Resp BP Pulse Ox O2 Del Method O2 Flow Rate 04/22/25 07:47 36.6 C 67 18 136/66 98 Room Air 04/22/25 02:30 Room Air 04/22/25 02:30 36.8 C 65 18 138/79 100 Room Air 04/22/25 00:35 62 16 118/62 97 Oxymask 3 Laboratory Results Cardiac Enzymes 04/21/25 Range/Units 16:56 AST 27 (13-39) U/L CBC 04/21/25 04/21/25 04/22/25 Range/Units 16:56 22:45 06:56 WBC 7.87 5.52 (4.8-10.8) K/ul RBC 3.31 L 3.34 L (4.20-5.40) M/uL Hgb 9.9 L 9.2 L 9.8 L (12.0-16.0) g/dl Hct 31.0 L 28.7 L 31.6 L (37.0-47.0) % Plt Count 223 219 (130-400) K/uL Neut # (Auto) 5.27 3.33 (1.40-6.50) K/uL Lymph # (Auto) 1.58 1.48 (1.20-3.40) K/uL [place] # (Auto) 0.92 H 0.57 (0.11-0.59) K/uL Eos # (Auto) 0.07 0.11 (0.00-0.50) K/uL Baso # (Auto) 0.01 0.02 (0.00-0.20) K/uL Comprehensive Metabolic Panel 04/21/25 04/22/25 Range/Units 16:56 06:56 Sodium 135 L 137 (136-145) mmol/L Potassium 4.5 4.4 (3.5-5.1) mmol/L Chloride 102 105 (98-107) mmol/L Carbon Dioxide 23 24 (21-32) mmol/L BUN 55 H 56 H (6-23) mg/dl Creatinine 3.90 H 4.07 H (0.6-1.2) mg/dl Glucose 126 H 88 (70-99(Fasting)) mg/dl Calcium 8.9 8.6 (8.6-10.3) mg/dl AST 27 (13-39) U/L ALT 27 (7-52) U/L Alkaline Phosphatase 135 H (34-104) U/L Total Protein 6.5 (6.0-8.3) gm/dl Albumin 3.8 (3.4-5.0) gm/dl Diagnostic Findings Echocardiogram performed today 04/22/2025 interpreted Independentl: Mild concentric left ventricular hypertrophy No regional wall motion abnormalities observed Normal left ventricular systolic function The left ventricular ejection fraction is normal hyperdynamic in the range of 65-70% The pulmonary artery systolic pressure is estimated be 37 mmHg (upper limit of normal) grade 1 diastolic dysfunction is noted (mildly abnormal). (2) Lumbar stenosis Neurogenic claudication status: with neurogenic claudication Qualified Code(s): M48.062 - Spinal stenosis, lumbar region with neurogenic claudication
--- NOTE | 2025-04-22 13:54 | Electrocardiogram Report ---
Test Reason : Blood Pressure : */* mmHG Vent. Rate : 66 BPM Atrial Rate : 66 BPM P-R Int : 148 ms QRS Dur : 92 ms QT Int : 408 ms P-R-T Axes : 63 54 58 degrees QTcB Int : 427 ms Normal sinus rhythm Nonspecific T wave abnormality Abnormal ECG When compared with ECG of 26-Feb-2019 10:17, Non-specific change in ST segment in Anterior leads T wave inversion no longer evident in Inferior leads Nonspecific T wave abnormality no longer evident in Anterolateral leads Confirmed by Aramis Gill ([id number]) on 04/22/2025 1:53:49 PM Referred By: REFERRED SELF Confirmed By: Aramis Gill
--- NOTE | 2025-04-22 16:31 | Nephrology Consultation ---
Date of Consultation April 22, 2025 Assessment & Plan (1) DELROY (acute kidney injury): the acute component is very minimal as she has advanced CKD stage 5 at baseline. current creatinine of 4.1 is slightly higher than her baseline of around 3.8. so at this point we would manage her as CKD 5. if she undergoes surgery there is chance that she can have further decline in her kidney function with acute hemodynamic stress of the surgery. she is aware of this and is 1 of the reason she is hesitant in doing surgery. (2) CKD (chronic kidney disease) stage 5, GFR less than 15 ml/min: she has known CKD 5 and follows with Nephrology in her hometown. Currently no electrolyte issues or volume overload despite no diuretics. she is currently on sodium bicarb which can be continued at the same dose. she will need perioperative Nephrology evaluation and management if she under goes surgery (3) Lumbar disc herniation with myelopathy: reason for admission. patient wanted 2nd opinion regarding surgery. I reviewed orthopedics note in detail in his in agreement Plan total time spent 65 minutes. I did discuss with Dr. Zamora as well as reviewed orthopedics note History of Present Illness Reason for Consultation: Acute on chronic kidney disease Attending Physician: Claude Barber MD History of Present Illness 85-year-old female with known baseline CKD stage 5 with baseline creatinine around 3.8. She follows with Dr. Viramontes in [facility]. she has had CKD 5 for the last few years and unclear etiology. she has significant spinal problems causing pain and was told to have spinal surgery at [facility] in [place], [place]. however she came to [facility] specifically looking for Dr. Montilla about 2nd opinion for spinal surgery. I have been consulted for abnormal labs. current creatinine is 4.1 which is very slightly higher than baseline. definitive plan about surgery has not been made as patient is still thinking about it. she denies any other complaints. denies nausea vomiting chest pain shortness of breath orthopnea PND lower extremity edema. she has been evaluated by Cardiology and also had echocardiogram done which was unremarkable as part of preoperative workup review of systems---- 12 systems reviewed and is otherwise negative physical examination elderly white female who is not in any respiratory distress she is awake alert oriented x3 mucous membrane is moist neck is supple no JVD chest bilateral clear to auscultation CVS S1-S2 regular abdomen is soft nontender extremities shows no edema. normal speech no skin rash Allergies Allergy/AdvReac Type Severity Reaction Status Date / Time morphine AdvReac Mild "jittery" Verified 02/26/19 12:24 Home Medications Medication Instructions Recorded Confirmed Type amlodipine 5 mg tablet 10 mg PO QAM 02/24/19 04/21/25 History flaxseed oil 1,000 mg capsule 1,000 mg PO QAM 02/24/19 04/21/25 History gabapentin 100 mg capsule 200 mg PO HS 02/24/19 04/21/25 History (Neurontin) multivitamin 1 cap PO QAM 02/24/19 04/21/25 History omega 8-opj-vwo-fish oil 1,000 mg 1 cap PO QAM 02/24/19 04/21/25 History (120 mg-180 mg) capsule (Fish Oil) ranibizumab 0.5 mg/0.05 mL 1 dose intravitreal UD 02/24/19 04/21/25 History intravitreal solution for injection (Lucentis) cholecalciferol (vitamin D3) 1,250 50,000 unit PO WK 04/21/25 04/21/25 History mcg (50,000 unit) capsule cholecalciferol (vitamin D3) 125 5,000 unit PO DAILY 04/21/25 04/21/25 History mcg (5,000 unit) capsule cyanocobalamin (vitamin B-12) 1,000 mcg IM MONTHLY 04/21/25 04/21/25 History 1,000 mcg/mL injection solution evolocumab 140 mg/mL subcutaneous 140 mg subcut .[id number] 04/21/25 04/21/25 History pen injector (Evelin SureJoeick) levothyroxine 100 mcg tablet 100 mcg PO DAILY 04/21/25 04/21/25 History (Synthroid) pantoprazole 40 mg tablet,delayed 40 mg PO DAILY 04/21/25 04/21/25 History release sodium bicarbonate 650 mg tablet 650 mg PO TID 04/21/25 04/21/25 History Aspir-81 81 mg PO DAILY 04/22/25 04/22/25 History Patient History Medical History Nonobstructive atherosclerosis of coronary artery Per 2013 cath Osteoarthritis Fistula left arm - 4 fistula and do not work right arm - attempted and does not work follows with Dr. 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 - was found at ophthalmology visit will start to see Dr Walker in April 2019 Surgical History Hx of excision of mass lipoma (fatty tumor ) removed from back Hx of tubal ligation History of arthroscopy right knee arthroscopy x 3 History of carpal tunnel release right and left History of cholecystectomy History of esophagogastroduodenoscopy (EGD) History of colonoscopy S/P CATHY-BSO History of cataract surgery right and left History of cardiac cath 2014 heart cath--nonobstructive dz Social History Smoking Status: Former smoker Smoking End Date: 2006; Second Hand Exposure: No; Do You Dip or Chew Tobacco: No; Hx Alcohol Use: No Hx Substance Use: No Preferred Language: Lithuanian Communication Ability: Effective Full Decator Operator Required: No Beliefs That Will Affect Care: Adventism Adventism Beliefs: YAZDANISM Current Living Situation: Family Current Living Situation Comment: [facility] Feels Safe at Home: Yes Safety Concerns: Feels Safe At This Time Assistive Devices: Cane and Walker Assistive Devices Comment: PARTIAL UPPER DENTURE Results & Data Vital Signs (Past 12 Hours) Vital Signs Temp Pulse Resp BP Pulse Ox O2 Del Method 04/22/25 15:27 36.7 C 79 18 154/78 H 99 Room Air 04/22/25 09:00 Room Air 04/22/25 07:47 36.6 C 67 18 136/66 98 Room Air
[2025-04-22] MEDS: CALCIUM CARBONATE 500 MG CHEWABLE TAB PO PRN (20:39)
[2025-04-22] MEDS: DOCUSATE SODIUM/SENNA 50/8.6MG TAB PO SCH (20:39)
[2025-04-22] MEDS: GABAPENTIN 100 MG CAP PO SCH (20:40)
[2025-04-22] MEDS: LACTULOSE SYRUP 20 GM/30 ML UDC PO ONE (20:45)
[2025-04-23] MEDS: PROMETHAZINE 6.25 MG/50.25 ML BAG IV PRN (00:39)
[2025-04-23 07:10] VITALS: BP 131/58; PULSE 83; TEMP 99.3; O2SAT 95
[2025-04-23] MEDS: ASPIRIN 81 MG ECTAB PO SCH (08:12)
--- NOTE | 2025-04-23 08:59 | Discharge Summary ---
Date of Service April 23, 2025 Admission HPI Per Admitting Provider History obtained from patient, family, and records. Medical history significant for CHF as per records, nonocclusive CAD, carotid artery disease, CVA as per records, hypertension, hyperlipidemia, uterine cancer status post surgery, left tonsillar cancer status post surgery/radiation, CRI (baseline creatinine 3.9-4), chronic anemia (baseline hemoglobin 11), hypothyroidism, GERD, cauda equina syndrome as per records, past tobacco abuse. Patient noted worsening of chronic low back pain last month after outpatient steroid injection. Usual neck pain as per patient. No radiation to legs. Both legs (right more than the left) weaker than usual as per patient. Chronic urinary incontinence. Bowel incontinence noted few months ago. No fever, no chills. Patient denies chest pain, SOB, cough symptoms. Denies abdominal pain, black/bloody stools, hematuria. No BM for 3 days which is unusual for her. Patient directed by outpatient provider to ER for evaluation. Patient admitted at [facility] from April 18 to 2024 for possible cauda equina syndrome. MRI cervical spine showed cervical spondylosis with multiple level disc herniations. MRI lumbar spine showed 1. Dextroscoliosis lumbar spine with associated spondylosis. 2. Multiple level disc herniations 3, grade 1 anterolisthesis of L4 over L5 with posterior diffuse disc bulge causing grade 3 central canal stenosis, compression over traversing as well as bilateral exiting nerve roots and bilateral severe neuroforaminal narrowing at L4/L5 level. Chest x-ray official read no evidence of acute cardiopulmonary disease. Carotid artery Dopplers showed 70 to 99% stenosis proximal left ICA. 50 to 69% stenosis proximal right ICA. Patient evaluated by neurosurgery during confinement. Impression was grade 1 anterolisthesis L4 over L5 with posterior disc bulge causing grade 3 central canal stenosis, chronic myomalacia cervical spine C3-C4. Medical clearance recommended prior to surgery. Patient requested to be discharged from facility today to seek second surgical opinion at [facility]. Medical History as above Surgical History : Hysterectomy, left tonsillectomy, adenoidectomy, myringotomy, cataract surgeries, cholecystectomy, bilateral carpal tunnel surgery, AV fistula creation, knee surgery right, BTL, partial tongue surgery, subcutaneous fibroid tumor removal Family History : Heart disease, ovarian cancer, carcinoid neoplasm, DM, stroke, aneurysm, heart disease Personal/Social history : Past tobacco abuse, occasional EtOH intake, retired businesswoman Admission Exam Per Admitting Provider GENERAL: Comfortable, pleasant, no respiratory distress SKIN: Pallor,, warm HEENT: Pale palpebral conjunctivae, no ptosis, dry buccal mucosa NECK : Supple, no tenderness CHEST : CTA, no tenderness HEART : RRR, systolic murmur ABDOMEN: Some distention, nontender BACK : Low back tenderness, limited SLR RECTAL : Intact sphincter, brown stool (FOBT negative) EXTREMITIES : No LE swelling/tenderness, palpable pulses, minimal right shoulder tenderness, no other conspicuous deformities noted NEUROLOGIC : Coherent, no facial asymmetry, MMTs BUE 4/5 (L>R), BLE 3/5 (L>R), gait and stance not assessed Principal Diagnosis Back pain, lumbar stenosis, myelopathy Discharge Exam GENERAL: WD/WN elderly F in NAD HEENT: NC/AT, EOMI NECK : Supple CHEST : CTA, no tenderness HEART : RRR, systolic murmur ABDOMEN: Some distention, nontender BACK : Low back tenderness EXTREMITIES : No LE swelling, moves extremities NEUROLOGIC : Coherent, no facial asymmetry, MMTs BUE 4/5 (L>R), BLE 3/5 (L>R), gait and stance not assessed SKIN: warm, dry Discharge Data Allergies Allergy/AdvReac Type Severity Reaction Status Date / Time morphine AdvReac Mild "jittery" Verified 02/26/19 12:24 Consultations 04/21/25 19:47 ED Decision to Admit Stat 04/21/25 21:30 Consult Orthopedic Spine Surgery Routine 04/22/25 00:34 Consult Cardiology Routine 04/22/25 10:25 Consult Nephrology Routine Hospital Course (1) Back pain: Assessment and plan Worsening back pain of few weeks duration Lumbar stenosis, myelopathy Pt presents from [facility], where was treated for cauda equina Surgery was planned there but pt wanted to come to [facility] to seek second opinion, specifically pt was hoping to see Dr. 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 Tran. Pls see his note for full assessment and recommendations. In short, surgery recommended but in tertiary care center. Transfer to tertiary center recommended due to high risk of cardiac co mplications with recommended surgical intervention after discussion with [facility] anesthesiologist (Dr. Hollingsworth). (Pt has revised cardiac index score of 4 points - Class IV Risk, 15% 30-day risk of , VA, or cardiac arrest.) Urgent transfer not indicated owing to patient circumstances after Dr. Tran's discussion with [facility] neurosurgeon (Dr. Zamarripa) as per ED provider. [facility] hospitalist service declined transfer request due to absence of definite surgical plan/schedule from [facility] specialist and current [facility] bed availability. Plan is for pt to go to rehab at this time, as no emergent surgery. She is to follow up with [facility] Dr. Zamarripa as outpt. CM involved in DC planning - plan for DC to [facility] Chronic conditions: CHF as per records, patient euvolemic hx nonocclusive CAD Bilateral carotid artery disease hx CVA as per records hypertension, stable Cardiology consulted for poss. pre-op eval Echo obtained - mild concentric LVH, no regional wall motion abnormalities, LV syst. function normal, LV EF 65-70%. pulm. artery syst. pressure estimated 37 mm Hg (upper limit of normal). Grade I diast. dysfunction Per cardiology - Patient's cardiac status is felt to be stable, but certainly she is at high risk for cardiac and noncardiac complication especially given her carotid disease and her degree of chronic kidney disease. I counseled her that if she was to have spine surgery, it would certainly, the risk of causing her to have progressive renal insufficiency and need for dialysis. Ongoing discussions in process with regards to the benefits and risks of the proposed procedure. I do not think there is any further cardiac testing or treatment that would redu ce said risk. 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 current creatinine of 4.1 is slightly higher than her baseline of around 3.8. so at this point we would manage her as CKD 5. if she undergoes surgery there is chance that she can have further decline in her kidney function with acute hemodynamic stress of the surgery. she is aware of this and is 1 of the reason she is hesitant in doing surgery. Currently no electrolyte issues or volume overload despite no diuretics. she is currently on sodium bicarb which can be continued at the same dose. she will need perioperative Nephrology evaluation and management if she undergoes surgery Other chronic conditions uterine cancer status post surgery left tonsillar cancer status post surgery/radiation, in remission, aspiration concerns following 2019 surgery Acute on chronic anemia, hemoglobin drop from baseline, no overt source of bleed, FOBT done at the ER was negative Follow H&H, transfuse PRBC to maintain hemoglobin of at least 8 Hgb 9.8 on 04/22 stable from previous day Hgb 9.9 04/23 Hypothyroidism, euthyroid as of current TSH Hyperglycemia rule out DM, current A1c 5.9% Constipation possibly opioid induced, Bowel regimen Past tobacco abuse Patient's daughter - Ms. Nuha Mcclelland, contact #[phone]. Total Time Total Time Spent Total Time Spent (In Minutes): 50 Discharge Plan Discharge Items Patient Disposition: Transfer Inpatient Rehab Fac Reason For Visit: CAUDA EQUINA Discharge Diagnosis: Back pain, lumbar stenosis, myelopathy Condition on Discharge: Fair Activity: Per Instructions section Non-emergency contact: Primary Care Provider, Surgeon and Specialist Call non-emergency contact if: you have any medication questions and your symptoms worsen Follow-up/Referrals: Adalberto Bañuelos [Primary Care Provider] - Diet: Heart Healthy Diet Texture: Dental soft (bite-sized) Addtl Attending Provider Instructions: Follow up with your primary care physician, orthopedic surgeon, police liaison, program research specialist. As discussed with numerous specialists/ health care providers, it is recommended that you proceed to have your back surgery at a tertiary care hospital. Follow up with all your specialists/ health care providers so that your pre-op clinical status is optimized. Pending Studies at Discharge: No Stand-Alone Forms: My [facility] Skilled Items Patient informed of condition?: Yes DNR: No Discharge Level of Care: Acute rehab Communicable Disease: No Discharge Prognosis: Stable Lines: None Urinary Catheter: No Medications and DC Order Prescriptions: New oxycodone 5 mg tablet 5 mg PO Q8H PRN (Reason: pain) Qty: 10 0RF Continued amlodipine 5 mg Tablet 10 mg PO QAM flaxseed oil 1,000 mg Capsule 1,000 mg PO QAM Rx Instructions: 04/21-OTC unable to verify gabapentin [Neurontin] 100 mg Capsule 200 mg PO HS multivitamin Capsule 1 cap PO QAM Rx Instructions: 04/21-OTC unable to verify Lucentis 0.5 mg/0.05 mL Solution 1 dose INTRAVITREAL UD Rx Instructions: original: 1 dose intravitreal every 6 weeks 04/21-No fill history unable to verify omega 4-hdq-yil-fish oil [Fish Oil] 1,000 mg (120 mg-180 mg) Capsule 1 cap PO QAM Rx Instructions: 04/21-OTC unable to verify levothyroxine [Synthroid] 100 mcg tablet 100 mcg PO DAILY sodium bicarbonate 650 mg tablet 650 mg PO TID pantoprazole 40 mg tablet,delayed release (DR/EC) 40 mg PO DAILY cyanocobalamin (vitamin B-12) 1,000 mcg/mL solution 1,000 mcg IM MONTHLY cholecalciferol (vitamin D3) 125 mcg (5,000 unit) capsule 5,000 unit PO DAILY cholecalciferol (vitamin D3) 1,250 mcg (50,000 unit) capsule 50,000 unit PO WK Repatha SureClick 140 mg/mL pen injector 140 mg subcut .[id number] Aspir-81 81 mg PO DAILY Discharge Orders: Discharge Order (Routine); Ordered 04/23/25 Ordered By: Claude Oliva/Other Patient Handouts: A1C Admission Data Admit Date/Time: 04/22/25 19:48 Attending Provider: Claude Barber Admit Provider: Tyler Schmitt Primary Care Provider: Adalberto Bañuelos Other Providers: Tyler Schmitt; Keenan Tran; Perla Reyez; Jhony Haas; Chele Schmid; Ulysses Gayle; Dillon Maloney; Edgar Chauhan; Stefanie Rodriguez; Britni Sanches; Norah Ford; Domingo Degroot Ashley M.; Tod Wallace; Jean Claude Vidal; Kristen Claros; Blanca Marie; Criselda Dunbar; Floresita Larry; Luke Gupta; Mora Phillips; Adia Blunt; Pablo Amaro; Neal Martinez; [facility] Other Interventions: Discharge Summary Assessment (RN) Last Done: 04/23/25 08:41
== END 2025-04-23 09:03 | DRG 552 ==
LOC: ED 13:23 → EDINP 13:23 → 3N 04-22 02:16